=== PATIENT | female | born 1970 | race Caucasian/White ===

== ENCOUNTER 2018-09-04 11:01 | Emergency (ER) | payer SELFPAY ==
[~2018-09-04] VITALS: Ht 149.9 cm; Wt 109.0 kg
--- NOTE | 2018-09-04 11:44 | NUR ---
PT CURRENTLY IN .
[2018-09-04 11:48] LABS: BASOPHILS # (AUTO) 0.13 x10^3/uL (0-0.1); BASOPHILS % (AUTO) 1 % (0-1); EOSINOPHILS # (AUTO) 0.91 x10^3/uL (0-0.4); EOSINOPHILS % (AUTO) 10 % (1-7); LYMPHOCYTES # (AUTO) 2.79 x10^3/uL (1-3.4); LYMPHOCYTES % (AUTO) 31 % (22-44); MD NO; MEAN CORPUSCULAR HEMOGLOBIN 30.4 pg (27.0-34.8); MEAN CORPUSCULAR HGB CONC 33.3 g/dL (32.4-35.8); MEAN CORPUSCULAR VOLUME 91.2 fL (80-100); MEAN PLATELET VOLUME 8.2 fL (7.4-10.4); MONOCYTES % (AUTO) 9 % (2-9); NEUTROPHILS # (AUTO) 4.28 x10^3/uL (1.8-6.8); NEUTROPHILS % (AUTO) 48 % (42-75); PLATELET COUNT 487 x10^3/uL (130-400); RED BLOOD COUNT 4.62 x10^6/uL (3.82-5.3); RED CELL DISTRIBUTION WIDTH 14.2 % (9.6-15.2)
[2018-09-04 11:54] LABS: ALBUMIN 3.4 g/dL (3.4-5.0); ANION GAP 3 mmol/L (5-15); CALCIUM 8.9 mg/dL (8.5-10.1); CHLORIDE 109 mmol/L (98-107); CREATININE 0.79 mg/dL (0.55-1.02)
--- NOTE | 2018-09-04 12:00 | NUR ---
report received from MELIZA Gross, pt remains in US at this time.
--- NOTE | 2018-09-04 12:00 | NUR ---
REPORT GIVEN TO MELIZA ROBLERO.
[2018-09-04 12:38] VITALS: BP 133/78
--- NOTE | 2018-09-04 12:39 | NUR ---
PT BACK FROM US, BP AND SPO2 MONITORS IN PLACE. JEREMIAH NG AT BEDSIDE TO UPDATE PT WITH RESULTS AND POC.
--- NOTE | 2018-09-04 12:49 | NUR ---
EVERTON Cruz notified pt has not had straight cath, EVERTON grossman'd dc without straight cath.
--- NOTE | 2018-09-04 13:09 | NUR ---
pt given dc instructions including obgyn referral. pt a&o, resps even and unlabored, skin pwd. pt amb to dc desk wtih steady gait, accompanied by friend. liss at dc.
== END 2018-09-04 13:10 | disposition home or self-care (01) ==
LOC: ED 11:41
DX: N93.8 Other specified abnormal uterine and vaginal bleeding (principal); E11.9 Type 2 diabetes mellitus without complications; Z85.3 Personal history of malignant neoplasm of breast
CPT/HCPCS: 36415; 76830; 80048; 82040; 84703; 85025; 99284

== ENCOUNTER 2019-09-17 12:27 | Emergency (ER) | payer OTHER ==
[~2019-09-17] VITALS: Ht 149.9 cm; Wt 80.1 kg
--- NOTE | 2019-09-17 13:03 | NUR ---
PT HAS CO VAGINAL BLEEDING FOR 3 WEEKS. PT STATES IT HAS BEEN HEAVIER PAST FEW DAYS WITH CRAMPING/CONTRACTIONS. PT STATE SHE HAS SOAKED THROUGH PADS FREQUENTLY. HX OF BREAST CANCER. VSS, PT NOT IN DISTRESS. PROVIDER BEDSIDE
[2019-09-17 13:33] VITALS: BP 118/75
[2019-09-17 13:36] LABS: BASOPHILS # (AUTO) 0.05 x10^3/uL (0-0.1); BASOPHILS % (AUTO) 1 % (0-1); EOSINOPHILS % (AUTO) 5 % (1-7); LYMPHOCYTES # (AUTO) 1.66 x10^3/uL (1-3.4); LYMPHOCYTES % (AUTO) 21 % (22-44); MD NO; MEAN CORPUSCULAR HEMOGLOBIN 25.9 pg (27.0-34.8); MEAN CORPUSCULAR HGB CONC 32.2 g/dL (32.4-35.8); MEAN CORPUSCULAR VOLUME 80.6 fL (80-100); MEAN PLATELET VOLUME 7.9 fL (7.4-10.4); MONOCYTES # (AUTO) 0.73 x10^3/uL (0.2-0.8); MONOCYTES % (AUTO) 9 % (2-9); NEUTROPHILS # (AUTO) 5.18 x10^3/uL (1.8-6.8); NEUTROPHILS % (AUTO) 65 % (42-75); PLATELET COUNT 539 x10^3/uL (130-400); RED BLOOD COUNT 3.47 x10^6/uL (3.82-5.3); RED CELL DISTRIBUTION WIDTH 17.3 % (9.6-15.2)
[2019-09-17 13:44] LABS: ANION GAP 6 mmol/L (5-15); CALCIUM 8.7 mg/dL (8.5-10.1); CHLORIDE 111 mmol/L (98-107); CREATININE 0.75 mg/dL (0.55-1.02)
--- NOTE | 2019-09-17 13:50 | NUR ---
pt resting, vss, plan for US
--- NOTE | 2019-09-17 15:11 | NUR ---
MT NOTE: INSTRUMENT REPAIRER PAGED @[phone]
--- NOTE | 2019-09-17 15:15 | NUR ---
MT NOTE: INTERLOCKING INSTALLER CALLBACK @ [phone]
--- NOTE | 2019-09-17 15:38 | NUR ---
Patient given discharge instructions and they have confirmed that they understand the instructions. Patient ambulatory with steady gait.
== END 2019-09-17 15:39 | disposition home or self-care (01) ==
LOC: ED 12:56
DX: N93.8 Other specified abnormal uterine and vaginal bleeding (principal); N92.0 Excessive and frequent menstruation with regular cycle; D64.9 Anemia, unspecified; R10.9 Unspecified abdominal pain; E11.9 Type 2 diabetes mellitus without complications; Z90.49 Acquired absence of other specified parts of digestive tract; Z85.9 Personal history of malignant neoplasm, unspecified; Z90.81 Acquired absence of spleen
CPT/HCPCS: 36415; 76830; 80048; 82040; 84703; 85025; 99284